=== PATIENT | male | born 1980 | race Caucasian/White ===

== ENCOUNTER 2019-02-03 13:03 | Emergency (ER) | payer SELFPAY ==
[~2019-02-03] VITALS: Ht 177.8 cm; Wt 74.8 kg
[2019-02-03 13:05] VITALS: BP 131/89
--- NOTE | 2019-02-03 13:29 | PHYS DOC ---
Past Medical History Past Medical History: No Pertinent History Alcohol Use: None Drug Use: Marijuana Adult General Chief Complaint Chief Complaint: FOREIGN BODY/EYES HPI HPI Patient is a 38 year old male who presents to the ER after having right eye pain. The patient states his pain started 30 minutes prior to arrival. Patient was having sheet rock when happened. He states that he feels like something is in his eye. He rates his pain as 3 out of 10 in severity and states is just irritating. Review of Systems Review of Systems Constitutional: Denies fever or chills [] Eyes: Denies change in visual acuity, Reports redness, and eye pain [] HENT: Denies nasal congestion or sore throat [] Respiratory: Denies cough or shortness of breath [] Cardiovascular: No additional information not addressed in HPI [] GI: Denies abdominal pain, nausea, vomiting, bloody stools or diarrhea [] : Denies dysuria or hematuria [] Musculoskeletal: Denies back pain or joint pain [] Integument: Denies rash or skin lesions [] Neurologic: Denies headache, focal weakness or sensory changes [] Endocrine: Denies polyuria or polydipsia [] Complete systems were reviewed and found to be within normal limits, except as documented in this note. Allergies Allergies Allergies Coded Allergies Type Severity Reaction Last Updated Verified No Known Drug Allergies 02/03/19 No Physical Exam Physical Exam Constitutional: Well developed, well nourished, no acute distress, non-toxic appearance. [] HENT: Normocephalic, atraumatic, bilateral external ears normal, oropharynx moist, no oral exudates, nose normal. [] Eyes: PERRLA, EOMI, R conjunctiva is red, white foreign body noted on lens of eye. Neck: Normal range of motion, no tenderness, supple, no stridor. [] Cardiovascular:Heart rate regular rhythm, no murmur [] Lungs & Thorax: Bilateral breath sounds clear to auscultation [] Abdomen: Bowel sounds normal, soft, no tenderness, no masses, no pulsatile masses. [] Skin: Warm, dry, no erythema, no rash. [] Back: No tenderness, no CVA tenderness. [] Extremities: No tenderness, no cyanosis, no clubbing, ROM intact, no edema. [] Neurologic: Alert and oriented X 3, normal motor function, normal sensory function, no focal deficits noted. [] Psychologic: Affect normal, judgement normal, mood normal. [] Current Patient Data Vital Signs Vital Signs Date Time Temp Pulse Resp B/P (MAP) Pulse Ox O2 Delivery O2 Flow Rate FiO2 02/03/19 13:05 97.9 80 16 131/89 (103) 96 Room Air 97.9 EKG EKG [] Radiology/Procedures Radiology/Procedures [] Course & Med Decision Making Course & Med Decision Making Pertinent Labs and Imaging studies reviewed. (See chart for details) Will have nursing irrigate with amara lens. Patient could not tolerate amara's lens nursing then irrigated at eye station and was able to get the foreign body out. The patient states that he feels much better and wants to leave. Will discharge home. Discussed that there is a chance that he could have scratch on his eye and that if continue to hurt to come back for further workup. The patient agrees to this. Dragon Disclaimer Dragon Disclaimer This electronic medical record was generated, in whole or in part, using a voice recognition dictation system. Departure Departure Impression: Primary Impression: Foreign body in eye Disposition: 01 HOME, SELF-CARE Condition: STABLE Referrals: NO PCP (PCP) Patient Instructions: Eye - Foreign Body Additional Instructions: Thank you for visiting [facility]. We appreciate you trusting us with your care. If any additional problems come up don't hesitate to return to visit us. Please follow up with your primary care provider so they can plan additional care if needed and know about the problem that you had. If symptoms worsen come back to the Emergency Department. Any concerning symptoms that start such as chest pain, shortness of air, weakness or numbness on one side of the body, running high fevers or any other concerning symptoms return to the ER. Problem Qualifiers Primary Impression: Foreign body in eye Encounter type: initial encounter Laterality: right Qualified Codes: T15.91XA - Foreign body on external eye, part unspecified, right eye, initial encounter DAYSI COSTELLO APRN Feb 03, 2019 13:29
== END 2019-02-03 14:20 | disposition home or self-care (01) ==
LOC: ER 13:03
DX: T15.91XA Foreign body on external eye, part unspecified, right eye, initial encounter (principal); X58.XXXA Exposure to other specified factors, initial encounter; Y93.89 Activity, other specified; Y92.89 Other specified places as the place of occurrence of the external cause; Y99.8 Other external cause status
CPT/HCPCS: 99284